=== PATIENT | female | born 1990 | race Caucasian/White ===

== ENCOUNTER 2016-10-05 13:44 | Emergency (ER) | payer MEDICAID ==
[2016-10-05 13:44] VITALS: BMI 57.2
[2016-10-05 13:55] VITALS: BP 131/71; PULSE 96; RESP 18; TEMP 98; O2SAT 99
--- NOTE | 2016-10-05 14:29 | ED PDOC ---
HPI: General Adult Time Seen by Provider: 10/05/16 14:03 Chief Complaint (Nursing): Abnormal Skin Integrity Chief Complaint (Provider): Right upper lip swelling History Per: Patient History/Exam Limitations: no limitations Onset/Duration Of Symptoms: Days (1) Have you had recent travel within the past 21 days to any of the following countries: [place], [place], [place] or [place]?: No Current Symptoms Are (Timing): Still Present Severity: Mild Additional History Per: Patient Additional Complaint(s): The pt is a 25yo female, presents to the ED for evaluation of swelling to her right upper lip s/p a possible bug bite yesterday [place] out at the park. pt reports last night she noticed some swelling but this morning saw a blister form , prompting her visit to the ED. She denies any fever or chills, tongue swelling , throat pain or swelling. She offers no additional medical complaints. NKDA Past Medical History Reviewed: Historical Data, Nursing Documentation, Vital Signs Vital Signs: Last Vital Signs Temp 98 F 10/05/16 13:52 Pulse 96 H 10/05/16 13:52 Resp 18 10/05/16 13:52 BP 131/71 10/05/16 13:52 Pulse Ox 99 10/05/16 14:34 - Medical History PMH: No Chronic Diseases - Surgical History Surgical History: No Surg Hx - Family History Family History: States: Unknown Family Hx - Social History Current smoker - smoking cessation education provided: No Alcohol: None Drugs: Denies - Home Medications Home Medications: Ambulatory Orders Medication Instructions Recorded Multivitamin and [id number] 1 tab PO DAILY 03/02/14 [] Docosanol [Abreva] 1 cre TP 5XD #1 cre 10/05/16 - Allergies Allergies/Adverse Reactions: Allergies Allergy/AdvReac Type Severity Reaction Status Date / Time No Known Allergies Allergy Unverified 03/02/14 08:50 Review of Systems ROS Statement: Except As Marked, All Systems Reviewed And Found Negative Constitutional: Negative for: Fever, Chills ENT: Positive for: Other (- tongue swelling; + right upper lip swelling). Negative for: Throat Pain, Throat Swelling Physical Exam - Reviewed Nursing Documentation Reviewed: Yes Vital Signs Reviewed: Yes - Physical Exam Appears: Positive for: Well, Non-toxic, No Acute Distress Head Exam: Positive for: ATRAUMATIC, NORMAL INSPECTION, NORMOCEPHALIC Skin: Positive for: Normal Color, Warm Eye Exam: Positive for: Normal appearance ENT: Positive for: Other (edema noted to right upper lip with irregular vesicle with clean fluid) Neck: Positive for: Normal Cardiovascular/Chest: Positive for: Regular Rate, Rhythm Respiratory: Positive for: Normal Breath Sounds. Negative for: Respiratory Distress Neurologic/Psych: Positive for: Alert, Oriented - ECG O2 Sat by Pulse Oximetry: 99 (RA) Pulse Ox Interpretation: Normal Medical Decision Making Medical Decision Making: Time: 1410 Impression: Cold sore Plan: -- Pt to be given topical cream and instructions for home care of vesicle on lip. Stable for d/c home. Scribe Attestation: Documented by Candi Gonzales, acting as a scribe for DAVID Aguirre Provider Attestation: All medical record entries made by the Scribe were at my direction and personally dictated by me. I have reviewed the chart and agree that the record accurately reflects my personal performance of the history, physical exam, medical decision making, and the department course for this patient. I have also personally directed, reviewed, and agree with the discharge instructions and disposition. Disposition - Clinical Impression Clinical Impression: Cold sore - Disposition Referrals: [facility] [Outside] Disposition: Routine/Home Disposition Time: 14:26 Condition: GOOD Prescriptions: Docosanol [Abreva] 1 cre TP 5XD #1 cre Instructions: Oral Herpes Simplex Virus Infections (ED) Forms: [facility] ED School/Work Excuse
== END 2016-10-05 15:00 | disposition home or self-care (01) ==
LOC: H.ER 13:44
DX: B00.1 Herpesviral vesicular dermatitis (principal)

== ENCOUNTER 2017-09-01 20:07 | Emergency (ER) | payer MEDICAID, OTHER ==
[2017-09-01 20:07] VITALS: BMI 57.2
[2017-09-01 20:26] VITALS: BP 107/70; O2SAT 99
--- NOTE | 2017-09-01 20:48 | ED PDOC ---
HPI: CCC, URI, Sore Throat Time Seen by Provider: 09/01/17 20:36 Chief Complaint (Nursing): ENT Problem Chief Complaint (Provider): sore throat History Per: Patient Additional Complaint(s): 26 y/o female presents to the ED with sore throat and fever 1 day. Patient also complains of body aches. She denies any coughing. Patient is tolerating liquids and solids. Past Medical History Reviewed: Historical Data, Nursing Documentation, Vital Signs Vital Signs: Last Vital Signs Temp 101.4 F H 09/01/17 20:23 Pulse 133 H 09/01/17 20:23 Resp 18 09/01/17 20:23 BP 107/70 09/01/17 20:23 Pulse Ox 99 09/01/17 22:22 - Medical History PMH: No Chronic Diseases - Surgical History Surgical History: No Surg Hx Other surgeries: two cyst removals - Family History Family History: States: No Known Family Hx - Living Arrangements Living Arrangements: With Family - Social History Current smoker - smoking cessation education provided: No Ex-Smoker (has not smoked in the last 12 months): No Alcohol: Social Drugs: Denies - Home Medications Home Medications: Ambulatory Orders Medication Instructions Recorded Multivitamin and [id number] 1 tab PO DAILY 03/02/14 [] Docosanol [Abreva] 1 cre TP 5XD #1 cre 10/05/16 Amoxicillin 875 mg PO BID #14 tab 09/01/17 - Allergies Allergies/Adverse Reactions: Allergies Allergy/AdvReac Type Severity Reaction Status Date / Time No Known Allergies Allergy Unverified 03/02/14 08:50 Review of Systems ROS Statement: Except As Marked, All Systems Reviewed And Found Negative Constitutional: Positive for: Fever, Other (body aches) ENT: Positive for: Throat Pain Respiratory: Negative for: Cough Gastrointestinal: Negative for: Nausea, Vomiting Neurological: Negative for: Headache, Dizziness Physical Exam - Reviewed Nursing Documentation Reviewed: Yes Vital Signs Reviewed: Yes - Physical Exam Appears: Positive for: Well, Non-toxic, No Acute Distress Head Exam: Positive for: ATRAUMATIC Skin: Positive for: Normal Color. Negative for: Rash Eye Exam: Positive for: Normal appearance ENT: Positive for: Pharyngeal Erythema, Tonsillar Exudate, Tonsillar Swelling. Negative for: Nasal Congestion Cardiovascular/Chest: Positive for: Regular Rate, Rhythm Respiratory: Positive for: Normal Breath Sounds. Negative for: Wheezing, Respiratory Distress Neurologic/Psych: Positive for: Alert, Oriented - Laboratory Results Urine POC: Negative - ECG O2 Sat by Pulse Oximetry: 99 (RA) Pulse Ox Interpretation: Normal Medical Decision Making Medical Decision Making: Time: 20:23 Impression: 26 y/o female with sore throat and fever Initial Plan: * Test * Tylenol 975 mg PO * Motrin 600 mg * Throat Culture * Influenza Test * Strep Test Strep is positive. Patient given initial dose of amoxicillin along with Decadron IM. Prescriptions for amoxicillin provided. Patient was instructed to alternate Tylenol and Motrin for fever control. Advised fluids, rest and follow up with primary doctor in 2-3 days. Scribe Attestation: Documented by Buck Reyez acting as a scribe for Pamela Rasheed PA-C. Scribe Attestation: All medical record entries made by the Scribe were at my direction and personally dictated by me. I have reviewed the chart and agree that the record accurately reflects my personal performance of the history, physical exam, medical decision making, and the department course for this patient. I have also personally directed, reviewed, and agree with the discharge instructions and disposition. Disposition - Clinical Impression Clinical Impression: Strep throat - Patient ED Disposition Is Patient to be Admitted: No Counseled Patient/Family Regarding: Studies Performed, Diagnosis, Need For Followup, Rx Given - Disposition Referrals: [facility] [Outside] Disposition: Routine/Home Disposition Time: 22:20 Condition: STABLE Additional Instructions: Take amoxicillin as directed. Alternate Tylenol every 4 hours and Motrin every 6 hours for fever and pain. Drink plenty of fluids. Follow-up with primary doctor or clinic in 2-3 days. Prescriptions: Amoxicillin 875 mg PO BID #14 tab Instructions: Strep Throat (DC) Forms: [employer] (Chinese), [facility] ED School/Work Excuse
[2017-09-01] MEDS ORDERED: Dexamethasone 4 mg/1 ml IM STA (22:18)
[2017-09-02 00:20] VITALS: PULSE 87; RESP 16; TEMP 99.8
== END 2017-09-01 23:06 | disposition home or self-care (01) ==
LOC: H.ER 20:07
DX: J02.0 Streptococcal pharyngitis (principal)
CPT/HCPCS: 81025; 87070; 87430; 87804; 96372; 99282; J1100

== ENCOUNTER 2018-04-19 10:44 | Emergency (ER) | payer MEDICAID ==
[2018-04-19 10:44] VITALS: BMI 57.2
[2018-04-19 11:00] VITALS: BP 140/88; RESP 18; TEMP 98.9; O2SAT 100
--- NOTE | 2018-04-19 11:55 | ED PDOC ---
HPI: CCC, URI, Sore Throat Time Seen by Provider: 04/19/18 11:12 Chief Complaint (Nursing): ENT Problem Chief Complaint (Provider): Throat pain History Per: Patient History/Exam Limitations: no limitations Onset/Duration Of Symptoms: Other (last night) Current Symptoms Are (Timing): Still Present Location Of Pain: Throat Additional Complaint(s): 27 year old female presents to the ED for evaluation of throat pain since last night which has been worsening since this morning. Patient reports pain with swallowing. 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 She states she has a history of strep throat. Her last infection was in July of this year and states her current symptoms are similar to previous strep infections. 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 Patient also has a history of HTN but has not been on medications for it since 2010. LMP was 5 weeks ago. Denies fever/chills. PMD: Presto Past Medical History Reviewed: Historical Data, Nursing Documentation, Vital Signs Vital Signs: Last Vital Signs Temp 98.9 F 04/19/18 10:59 Pulse 102 H 04/19/18 10:59 Resp 18 04/19/18 10:59 BP 140/88 04/19/18 10:59 Pulse Ox 100 04/19/18 10:59 - Medical History PMH: HTN - Surgical History Surgical History: No Surg Hx - Family History Family History: States: Unknown Family Hx - Home Medications Home Medications: Ambulatory Orders Medication Instructions Recorded Multivitamin and [id number] 1 tab PO DAILY 03/02/14 [] RX: Docosanol [Abreva] 1 cre TP 5XD #1 cre 10/05/16 RX: Amoxicillin 875 mg PO BID #14 tab 09/01/17 Acetaminophen [Acetaminophen 8 650 mg PO Q8 PRN #21 tablet.er 04/19/18 Hour] RX: Amoxicillin 875 mg PO BID #14 tablet 04/19/18 RX: Naproxen 500 mg PO BID PRN #20 tab 04/19/18 - Allergies Allergies/Adverse Reactions: Allergies Allergy/AdvReac Type Severity Reaction Status Date / Time No Known Allergies Allergy Unverified 03/02/14 08:50 Review of Systems ROS Statement: Except As Marked, All Systems Reviewed And Found Negative ENT: Positive for: Throat Pain Physical Exam - Reviewed Nursing Documentation Reviewed: Yes Vital Signs Reviewed: Yes - Physical Exam Comments: GENERAL APPEARANCE: Patient is awake, alert, oriented x 3, in no acute distress. Resting comfortably, obese. SKIN: Warm, dry; (-) cyanosis. ENMT: Mucous membranes moist. Pharynx: uvula midline, (+) bilateral tonsilar erythema with 3+ hypertrophy and bilateral exudates. TMs: nonbulging and nonerythematous. Airway patent (-) stridor. NECK: Supple, FROM (-) tenderness, (-) stiffness, (+) anterior cervical lymphadenopathy. CHEST AND RESPIRATORY: (-) rhonchi, (-) rales, (-) wheezes; breath sounds equal bilaterally. Respirations even and nonlabored. HEART AND CARDIOVASCULAR: (-) irregularity ABDOMEN AND GI: Soft; (-) tenderness EXTREMITIES: (-) deformity NEURO AND PSYCH: Mental status as above. Gait: steady. Speech: clear. (-) facial asymmetry - Laboratory Results Urine POC: Negative - ECG O2 Sat by Pulse Oximetry: 100 (RA) Pulse Ox Interpretation: Normal Medical Decision Making Medical Decision Making: Initial Impression: Tonsillitis Initial Plan: --ED urine --Amoxicillin 500mg PO --Tylenol 650mg PO --Rapid strep 1150 Upreg: negative Decadron 10mg IM ordered. 1225 Rapid Strep: positive Repeat HR: 82 On re-evaluation, patient reports improvement of symptoms. On exam, patient remains AAOx3, in no acute distress. Vitals stable. Lab/Diagnostic results d/w the patient in great detail. Diagnosis of strep pharyngitis/tonsillitis d/w the patient. Based on history, exam and diagnostic results, plan will be for outpatient follow up with PMD/ENT. Patient instructed to follow-up with pmd / referral provided / the clinic in 1- 2 days without fail. Advised to take medication as prescribed. Return to the emergency room at any time for any new or worsening symptoms. Patient states she fully agrees with and understands discharge instructions. States that she agrees with the plan and disposition. Verbalized and repeated discharge instructions and plan. I have given the patient opportunity to ask any additional questions. Scribe Attestation: Documented by Talha Chen acting as a scribe for Palmira HERNANDEZ. Provider Scribe Attestation: All medical record entries made by the Scribe were at my direction and personally dictated by me. I have reviewed the chart and agree that the record accurately reflects my personal performance of the history, physical exam, medical decision making, and the department course for this patient. I have also personally directed, reviewed, and agree with the discharge instructions and disposition. Disposition - Clinical Impression Clinical Impression: Strep pharyngitis, Tonsillitis with exudate - Patient ED Disposition Is Patient to be Admitted: No Counseled Patient/Family Regarding: Studies Performed, Diagnosis, Need For Followup, Rx Given - Disposition Referrals: [facility] [Provider Group] Dwayne Broussard MD [Staff Provider] - Disposition: Routine/Home Disposition Time: 12:25 Condition: STABLE Additional Instructions: The emergency medical care you received today was directed at your acute symptoms. If you were prescribed any medication, please fill it and take as directed. It may take several days for your symptoms to resolve. Return to the Emergency Department if your symptoms worsen, do not improve, or if you have any other problems. Please contact your doctor in 2 days for re-evaluation and follow up / or call one of the physicians/clinics you have been referred to that are listed on the Patient Visit Information form that is included in your discharge packet. Bring any paperwork you were given at discharge with you along with any medications you are taking to your follow up visit. Our treatment cannot replace ongoing medical care by a primary care provider (PCP) outside of the emergency department. Prescriptions: Acetaminophen [Acetaminophen 8 Hour] 650 mg PO Q8 PRN #21 tablet.er PRN Reason: Fever >100.4 F RX: Amoxicillin 875 mg PO BID #14 tablet RX: Naproxen 500 mg PO BID PRN #20 tab PRN Reason: Pain, Moderate (4-7) Instructions: Sore Throat in Adults, Strep Throat (DC) Forms: [employer] (Lebanese), [facility] ED School/Work Excuse Print Language: VIETNAMESE - POA Present On Arrival: None Results - Lab Results Lab Results: 04/19/18 11:56 Grp A Beta Strep Ag Positive H
[2018-04-19 12:46] VITALS: PULSE 82
== END 2018-04-19 12:48 | disposition home or self-care (01) ==
LOC: SUPCPDRO 10:44 → H.ER 10:44
DX: J02.0 Streptococcal pharyngitis (principal); J03.90 Acute tonsillitis, unspecified; I10 Essential (primary) hypertension
CPT/HCPCS: 81025; 87430; 96372; 99283; J1100